=== PATIENT | male | born 1960 | race Caucasian/White ===

== ENCOUNTER → 2016-12-05 | Outpatient (CLI) | payer MEDICAID ==
[~2016-12-05] VITALS: Ht 162.6 cm; Wt 83.9 kg
[~2016-12-05] MED LIST: AMLO10TA80 PO; ASPI325T2 PO; ATEN100T PO; FURO20TA4 PO; LISI-604 PO; P20 PO
[2016-12-05 12:14] LABS: GLUCOSE CSF 142 mg/dL (41-75)
== END | disposition home or self-care (01) ==
LOC: RAD 09:47
PROVIDERS: ATTEND Psychiatry & Neurology Neurology
DX: G35 Multiple sclerosis (principal)
CPT/HCPCS: 62270; 77003; 82040; 82042; 82784; 82945; 83873; 83916; 84157; 89050